=== PATIENT | male | born 1950 | race Caucasian/White ===

== ENCOUNTER → 2020-12-07 10:24 | Outpatient (BNVA) | payer MEDICARE, OTHER, SELFPAY | PROVIDERS: PCP Internal Medicine; Visit Provider Internal Medicine | DX: M53.3 Sacrococcygeal disorders, not elsewhere classified (principal); M96.1 Postlaminectomy syndrome, not elsewhere classified; M47.817 Spondylosis without myelopathy or radiculopathy, lumbosacral region | CPT/HCPCS: 99202 ==

== ENCOUNTER 2020-12-16 06:42 | Outpatient (REF) | payer MEDICARE, OTHER, SELFPAY ==
--- NOTE | ~2020-12-16 | FL_ITS ---
EXAMINATION: XR FLUOROSCOPY WITH IMAGES CLINICAL INFORMATION: Sacrococcygeal disorder. COMPARISON: None. TECHNIQUE: Fluoroscopy performed by Serene Garcia. Fluoroscopy time: 0.6 minutes DAP: 2.29 Gycm2 Images: 2 FINDINGS: There is needle positioned posterior to the S2 vertebra with contrast opacifying the soft tissues. There is needle position in the vicinity of right SI joint with contrast opacifying the soft tissues. FL/FL guidance in treatment room IMPRESSION: Fluoroscopy was provided to referring physician for pain management.
== END 2020-12-16 06:43 | disposition home or self-care (01) ==
LOC: HO.RADIR 06:42
PROVIDERS: Visit Provider Internal Medicine
DX: M53.3 Sacrococcygeal disorders, not elsewhere classified (principal)
CPT/HCPCS: 27096; J1040; Q9967

== ENCOUNTER → 2020-12-28 10:03 | Outpatient (BNVA) | payer MEDICARE, OTHER, SELFPAY | PROVIDERS: PCP Internal Medicine; Visit Provider Internal Medicine | DX: M53.3 Sacrococcygeal disorders, not elsewhere classified (principal); M96.1 Postlaminectomy syndrome, not elsewhere classified | CPT/HCPCS: Q3014 ==

== ENCOUNTER 2021-01-06 06:25 | Outpatient (REF) | payer MEDICARE, OTHER, SELFPAY | END 2021-01-06 06:26 | disposition home or self-care (01) | LOC: HO.RADIR 06:25 | PROVIDERS: Visit Provider Internal Medicine | DX: Z13.89 Encounter for screening for other disorder (principal) ==

== ENCOUNTER 2021-01-06 12:50 | Day surgery (SDC) | payer MEDICARE, OTHER, SELFPAY ==
--- NOTE | 2021-01-05 11:35 | HO.ANESPROP2 ---
Documented by User: Jo-Ann Schumacher NP 01/05/21 11:36 HPI - Anesthesia Eval Consult details Narrative: 70yo M for Right Sacroiliac joint innervation Radiofrequency Ablation PMFSH Active Problems Active Problems: All Active Problems (Updated 12/09/20 @ 10:05 by Cheo Dorantes MD) Lumbar and sacral spondylarthritis (Acute) Post laminectomy syndrome (Acute) Sacroiliac joint dysfunction of right side (Acute) Impotence of organic origin (Acute) Fatigue (Acute) Foot drop (Acute) Acquired deformity of ankle and foot (Acute) Osteopenia (Acute) Avascular necrosis of bone (Acute) Low back pain (Acute) Joint pain (Acute) Arthropathia (Acute) GERD (gastroesophageal reflux disease) (Acute) Allergic rhinitis (Acute) Essential hypertension (Acute) Plantar nerve lesion (Acute) Insomnia (Acute) Anemia (Acute) Hypo-osmolality and hyponatremia (Acute) Hyperlipidemia (Acute) Pure hypercholesterolemia (Acute) 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) Past Medical History Medical History Acquired deformity of ankle and foot Luke disease Adrenal cortical hypofunction Allergic rhinitis Anemia Arthropathia Avascular necrosis of bone Cellulitis Cellulitis of lower limb Essential hypertension Fatigue Foot drop GERD (gastroesophageal reflux disease) H/O bone density study Hyperlipidemia Hypo-osmolality and hyponatremia Impotence of organic origin Insomnia Joint pain Low back pain Lumbar and sacral spondylarthritis Osteopenia Plantar nerve lesion Post laminectomy syndrome Pure hypercholesterolemia Sacroiliac joint dysfunction of right side Surgical History Surgical History H/O colonoscopy History of appendectomy History of back surgery History of esophagogastroduodenoscopy (EGD) History of revision of total hip arthroplasty Hx of tonsillectomy Joint replaced S/P hip arthroscopy Social History Social History Advance Directives: Yes Advance Directives on File: Yes Advance Directives Date on File: 01/06/21 Meds Allergies Allergy/AdvReac Type Severity Reaction Status Date / Time No Known Allergies Allergy Verified 12/16/20 09:13 [No Known Allergies*] Home Medications Medication Instructions Recorded Confirmed Last Taken Type diazepam 10 mg tablet 20 mg PO BEDTIME PRN tab 12/07/20 12/16/20 Unknown History ezetimibe 10 mg tablet 10 mg PO DAILY 12/07/20 12/16/20 Unknown History hydrocortisone 10 mg tablet 10 mg PO BID tab 12/07/20 12/16/20 Unknown History oxycodone-acetaminophen 10 mg-325 1 tab PO Q6H PRN 12/07/20 12/16/20 Unknown History mg tablet pregabalin 200 mg capsule (Lyrica) 200 mg PO BID 12/07/20 12/16/20 Unknown History rosuvastatin 20 mg tablet 20 mg PO DAILY 12/07/20 12/16/20 Unknown History trazodone 50 mg tablet 100 mg PO BEDTIME 12/07/20 12/16/20 Unknown History Exam Exam Date and Time: January 05, 2021 113 Assessment and Plan Assessment Anesthesia Assessment: Chart Reviewed Documented by User: Hortencia Randolph MD 01/06/21 13:16 [facility] Past Medical History Medical History Acquired deformity of ankle and foot [place] disease Adrenal cortical hypofunction Allergic rhinitis Anemia Arthropathia Avascular necrosis of bone Cellulitis Cellulitis of lower limb Essential hypertension Fatigue Foot drop GERD (gastroesophageal reflux disease) H/O bone density study Hyperlipidemia Hypo-osmolality and hyponatremia Impotence of organic origin Insomnia Joint pain Low back pain Lumbar and sacral spondylarthritis Osteopenia Plantar nerve lesion Post laminectomy syndrome Pure hypercholesterolemia Sacroiliac joint dysfunction of right side Functional capacity: independent ambulation Family History Family history of problems with anesthesia: No Surgical History Surgical History H/O colonoscopy History of appendectomy History of back surgery History of esophagogastroduodenoscopy (EGD) History of revision of total hip arthroplasty Hx of tonsillectomy Joint replaced S/P hip arthroscopy History of Problems with Anesthesia: No Social History Social History Advance Directives: Yes Advance Directives on File: Yes Advance Directives Date on File: 01/06/21 Meds Allergies Allergy/AdvReac Type Severity Reaction Status Date / Time No Known Allergies Allergy Verified 12/16/20 09:13 [No Known Allergies*] Home Medications Medication Instructions Recorded Confirmed Last Taken Type diazepam 10 mg tablet 20 mg PO BEDTIME PRN tab 12/07/20 12/16/20 Unknown History ezetimibe 10 mg tablet 10 mg PO DAILY 12/07/20 12/16/20 Unknown History hydrocortisone 10 mg tablet 10 mg PO BID tab 12/07/20 12/16/20 Unknown History oxycodone-acetaminophen 10 mg-325 1 tab PO Q6H PRN 12/07/20 12/16/20 Unknown History mg tablet pregabalin 200 mg capsule (Lyrica) 200 mg PO BID 12/07/20 12/16/20 Unknown History rosuvastatin 20 mg tablet 20 mg PO DAILY 12/07/20 12/16/20 Unknown History trazodone 50 mg tablet 100 mg PO BEDTIME 12/07/20 12/16/20 Unknown History Exam Airway Mallampati Class: II TM Dist: >3cm Neck ROM: Full Heart: RRR Lungs: CTA Assessment and Plan Final Anesthetic Review Family History of Problems with Anesthesia: No History of Problems with Anesthesia: No
[2021-01-06] VITALS (8 sets, daily range): BP systolic 129–172; BP diastolic 44–89; PULSE 54–72; RESP 16–17; TEMP 36.8–37.3; O2SAT 97–100
--- NOTE | ~2021-01-06 | FL_ITS ---
EXAMINATION: XR FLUOROSCOPY WITH IMAGES CLINICAL INFORMATION: SI radiofrequency ablation COMPARISON: Radiographs lumbar spine 09/08/2015 TECHNIQUE: Fluoroscopy performed by Dr. Dorantes. Fluoroscopy time: 2.8 minutes DAP: 11.1 Gycm2 Images: 20 FINDINGS: There are needles/electrodes overlying the bilateral sacral wings at upper, mid, and lower levels. Disc spacers are present lower lumbar spine. The pedicle screws and rods lower lumbar spine noted on prior radiographs 2015 are no longer demonstrated. There are degenerative changes again seen with multilevel lumbar disc narrowing and vertebral spurring, and lower lumbar spondylolisthesis. FL/FL guidance in OR IMPRESSION: Fluoroscopy for pain management procedures.
--- NOTE | 2021-01-06 13:55 | PC.NURSE ---
Patient states he has filled out DNR/DNI paperwork in the past. Patient does not have paperwork with him. Patients HCP is his , Guadalupe Adams, .
[2021-01-06] MEDS: Lactated Ringers 1,000 ML 100 ML IVCONT (14:09)
--- NOTE | 2021-01-06 14:49 | MHC.SHP ---
Pre-Procedural Eval Section A Date of Service: 01/06/21 The patient is an INPATIENT: No Changes since office visit: Yes Patient answered all questions The History & Physical has been completed within 30 days and I have reviewed it.: Yes Section B Chief Complaint: Sacroiliitis Allergies: Allergies Allergy/AdvReac Type Severity Reaction Status Date / Time No Known Allergies Allergy Verified 01/06/21 13:36 [No Known Allergies*] Plan Diagnosis/Plan: Unchanged I have reviewed the history and physical and performed a pertinent physical examination on my patient. No changes have occurred unless specified.
--- NOTE | 2021-01-06 17:27 | PM.OP ---
Brief Operative Note Date of Service: 01/06/21 Pre-op diagnosis: Sacroiliac dysfunction Post-op diagnosis: same Procedure: Sacroiliac joint innervation radiofrequency ablation Implants: None Surgeon: Cheo Dorantes MD Anesthesia: MAC Was an Director Patient Accounting used for this Procedure?: No Estimated blood loss (mL): 3 Pathology: none sent Condition: stable Disposition: PACU
--- NOTE | 2021-01-06 17:28 | P.OP_ITS ---
Operative Note Operative Note Date of Service: 01/06/21 Narrative: Sacroiliac Joint Innervation Radiofrequency Ablation - Bilateral The procedure, its benefits, and its risks including possible skin necrosis and lack relief were explained and written informed consent was obtained from the patient. Immediately prior to starting the procedure, a time-out safety check was conducted. The patient's identification, procedure name, procedure site, and procedure laterality were confirmed with the patient. The procedure site was marked with a surgical marker. Patient was placed prone on the fluoroscopy table and sedated by the judo instructor. His back was prepped and draped in standard fashion using ChloraPrep and draped with sterile drape. The C-arm AP view with a slight cephalad tilt was used to identify the S1, S2 and S3 foramina. The skin and subcutaneous tissue was anesthetized using 2% plain lidocaine with 1.5-inch 25- gauge needle along the lateral border of the sacral foramina. RF cannulas were then positioned laterally along the foramina in a sequential palisade formation at shallow angles as well as at the L5 dorsal ramus site. Proper advancement and positioning was assured using fluoroscopic guidance, and correct positioning was confirmed in the AP and lateral projections. The stylet was removed and the radiofrequency probe was inserted through the cannula. The impedance was between 300 and 500 ohms at all sites. Motor stimulation at 2Hz was carried out with no evidence of radicular motor stimulation in the legs. Subsequently, denervation was performed for 90 seconds at 80 degrees Celsius without complication at each site. At the L5 level, 1 denervation was performed. At each sacral foraminal level, 3 denervations were performed in the superolateral, lateral and infrolateral positions. The same procedure was repeated on the contralateral site. The patient tolerated the procedure well. After the procedure, he was woken up and brought to PACU in stable condition.
[2021-01-06] MEDS: fentaNYL citrate/PF 100 MCG/2 ML VIAL 25 MCG IVPUSH (17:45)
[2021-01-06] MEDS: oxyCODONE HCl Immed Release 5 MG TABLET 10 MG PO (17:56)
[2021-01-06] MEDS: Acetaminophen 325 MG TABLET 650 MG PO (17:59)
== END 2021-01-06 18:35 | disposition home or self-care (01) ==
PROVIDERS: Visit Provider Internal Medicine
PROC: (CPT 64635; principal; 2021-01-06 14:10)
DX: M46.1 Sacroiliitis, not elsewhere classified (principal); M47.898 Other spondylosis, sacral and sacrococcygeal region; M53.3 Sacrococcygeal disorders, not elsewhere classified; M54.50 Low back pain, unspecified; M96.1 Postlaminectomy syndrome, not elsewhere classified; M85.80 Other specified disorders of bone density and structure, unspecified site; R53.83 Other fatigue
CPT/HCPCS: 64625; J2250; J2370; J3010

== ENCOUNTER 2021-01-12 06:27 | Outpatient (REF) | payer MEDICARE, OTHER, SELFPAY ==
[2021-01-12 06:37] LABS: MANUAL DIFF FLAG NO
[2021-01-12 07:15] LABS: Basophils Percent Auto 0.4 % (0-2); Eosinophils Absolute Auto 0.1 X10*3/uL (0.0-0.4); Hematocrit 36.2 % (42-52); Hemoglobin 12.4 g/dl (14.0-18.0); Imm Gran Abs Auto 0.03 X10*3/uL (0.00-0.03); Imm Gran Pct Auto 0.4 % (0.0-0.4); Lymphocytes Absolute Auto 1.8 X10*3/uL (1.2-4.9); Lymphocytes Percent Auto 22.2 % (20-40); Mean Corpuscular HGB Conc 34.3 g/dl (31.0-36.0); Mean Corpuscular Hemoglobin 33.9 pg (27.0-33.0); Mean Corpuscular Volume 98.9 fL (80-98); Mean Platelet Volume 9.5 fL (9.4-12.4); Monocytes Absolute Auto 0.8 X10*3/uL (0.1-1.2); Neutrophils Absolute Auto 5.2 X10*3/uL (2.0-8.3); Platelet Count 160 X10*3/uL (160-400); Red Blood Count 3.66 X10*6/uL (4.60-5.80); Red Cell Distribution Width 13.2 % (11.0-16.0); White Blood Count 7.9 X10*3/uL (4.8-10.8)
[2021-01-12 07:27] LABS: Estimated Average Glucose 103 mg/dL; Hemoglobin A1c % 5.2 %
[2021-01-12 07:43] LABS: Alanine Aminotransferase 38 U/L (0-40); Alkaline Phosphatase 57 U/L (39-117); Anion Gap 12 (12-20); Aspartate Amino Transferase 60 U/L (5-37); Bilirubin Total 0.3 mg/dL (0.0-1.0); Blood Urea Nitrogen 20 mg/dL (9-16); Calcium 9.1 mg/dL (8.4-10.2); Carbon Dioxide 30 mmol/L (22-29); Chloride 101 mmol/L (96-108); Cholesterol 137 mg/dL; Estimated Glomerular Filt Rate > 60; Glucose Random 96 mg/dL (60-115); HDL Cholesterol 78 mg/dL; LDL Cholesterol Calculated 44 mg/dl; Potassium 4.3 mmol/L (3.3-5.1); Sodium 139 mmol/L (135-145); Total Protein 6.3 g/dL (6.5-8.0); Triglycerides 77 mg/dL
[2021-01-12 07:54] LABS: Prostate Specific Antigen 0.75 ng/mL (<0.05-4.0)
[2021-01-12 08:11] LABS: Folate 15.3 ng/mL (> or = 4.0); Vitamin B12 1276 pg/mL (200-900)
== END 2021-01-12 06:28 | disposition home or self-care (01) ==
LOC: HO.LAB 06:27
PROVIDERS: Visit Provider Physician Assistant Medical
DX: Z12.5 Encounter for screening for malignant neoplasm of prostate (principal); E89.6 Postprocedural adrenocortical (-medullary) hypofunction; N40.0 Benign prostatic hyperplasia without lower urinary tract symptoms; R53.83 Other fatigue; I10 Essential (primary) hypertension; D53.9 Nutritional anemia, unspecified; R73.01 Impaired fasting glucose
CPT/HCPCS: 36415; 80053; 80061; 82607; 82746; 83036; 84153; 85025

== ENCOUNTER → 2021-01-22 09:30 | Outpatient (BNVA) | payer MEDICARE, OTHER, SELFPAY | PROVIDERS: Visit Provider Internal Medicine | DX: M79.18 Myalgia, other site (principal); M47.817 Spondylosis without myelopathy or radiculopathy, lumbosacral region; M96.1 Postlaminectomy syndrome, not elsewhere classified | CPT/HCPCS: 20553; 99212 ==

== ENCOUNTER 2021-01-27 05:43 | Outpatient (REF) | payer MEDICARE, OTHER, SELFPAY ==
--- NOTE | ~2021-01-27 | FL_ITS ---
EXAMINATION: XR FLUOROSCOPY WITH IMAGES CLINICAL INFORMATION: Spondylosis without myelopathy COMPARISON: 01/06/2021 TECHNIQUE: Fluoroscopy performed by Dr. Dorantes. Fluoroscopy time: 0.5 minutes DAP: 1.1 Gycm2 Images: 4 FINDINGS: A radiopaque needle projects posterior to the lower lumbar spine at the L4-L5 level. FL/FL guidance in treatment room IMPRESSION: Fluoroscopic guidance for intervention at L4-L5 level posteriorly. Please refer to procedural report for further information.
== END 2021-01-27 05:44 | disposition home or self-care (01) ==
LOC: HO.RADIR 05:43
PROVIDERS: Visit Provider Internal Medicine
DX: M47.817 Spondylosis without myelopathy or radiculopathy, lumbosacral region (principal); M96.1 Postlaminectomy syndrome, not elsewhere classified; M54.50 Low back pain, unspecified
CPT/HCPCS: 64493; 64494; Q9967

== ENCOUNTER → 2021-01-29 11:53 | Outpatient (BNVA) | payer MEDICARE, OTHER, SELFPAY | PROVIDERS: Visit Provider Internal Medicine | DX: M47.817 Spondylosis without myelopathy or radiculopathy, lumbosacral region (principal); M96.1 Postlaminectomy syndrome, not elsewhere classified | CPT/HCPCS: Q3014 ==

== ENCOUNTER 2021-02-10 06:42 | Outpatient (REF) | payer MEDICARE, OTHER, SELFPAY | END 2021-02-10 06:43 | disposition home or self-care (01) | LOC: HO.RADIR 06:42 | PROVIDERS: Visit Provider Internal Medicine | DX: Z13.89 Encounter for screening for other disorder (principal) ==

== ENCOUNTER 2021-02-10 12:14 | Day surgery (SDC) | payer MEDICARE, OTHER, SELFPAY ==
--- NOTE | 2021-02-09 13:11 | P.CONAN_ITS ---
Documented by User: Jo-Ann Schumacher NP 02/09/21 13:13 HPI - Anesthesia Eval Consult details Narrative: 70yo M for Left L3-L4-L5 Medial Branches Radiofrequency Ablation s/p sacroiliac RFA with MAC 12/2020 Daily steroid d/t addisons PMFSH Active Problems Active Problems: All Active Problems (Updated 12/09/20 @ 10:05 by Cheo Dorantes MD) Lumbar and sacral spondylarthritis (Acute) Post laminectomy syndrome (Acute) Sacroiliac joint dysfunction of right side (Acute) Impotence of organic origin (Acute) Fatigue (Acute) Foot drop (Acute) Acquired deformity of ankle and foot (Acute) Osteopenia (Acute) Avascular necrosis of bone (Acute) Low back pain (Acute) Joint pain (Acute) Arthropathia (Acute) GERD (gastroesophageal reflux disease) (Acute) Allergic rhinitis (Acute) Essential hypertension (Acute) Plantar nerve lesion (Acute) Insomnia (Acute) Anemia (Acute) Hypo-osmolality and hyponatremia (Acute) Hyperlipidemia (Acute) Pure hypercholesterolemia (Acute) 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) Past Medical History Medical History Acquired deformity of ankle and foot Amelia disease Adrenal cortical hypofunction Allergic rhinitis Anemia Arthropathia Avascular necrosis of bone Cellulitis Cellulitis of lower limb Essential hypertension Fatigue Foot drop GERD (gastroesophageal reflux disease) H/O bone density study Hyperlipidemia Hypo-osmolality and hyponatremia Impotence of organic origin Insomnia Joint pain Low back pain Lumbar and sacral spondylarthritis Osteopenia Plantar nerve lesion Post laminectomy syndrome Pure hypercholesterolemia Sacroiliac joint dysfunction of right side Family History Family history of problems with anesthesia: No Surgical History Surgical History H/O colonoscopy History of appendectomy History of back surgery History of esophagogastroduodenoscopy (EGD) History of revision of total hip arthroplasty Hx of tonsillectomy Joint replaced S/P hip arthroscopy History of Problems with Anesthesia: No Social History Social History Patient Tobacco Use Status: Never used Tobacco Use of substances other than those prescribed or required for medical reasons: No Have you been hit, kicked, punched, or otherwise hurt by someone within the past year? If so, by whom?: No Are you DNR?: No Advance Directives: Yes Advance Directives on File: Yes Advance Directives Date on File: 01/06/21 Recently lost weight without trying: No Meds Allergies Allergy/AdvReac Type Severity Reaction Status Date / Time No Known Allergies Allergy Verified 01/29/21 11:55 [No Known Allergies*] Home Medications Medication Instructions Recorded Confirmed Last Taken Type diazepam 10 mg tablet 20 mg PO BEDTIME PRN tab 12/07/20 01/27/21 Unknown History ezetimibe 10 mg tablet 10 mg PO DAILY 12/07/20 01/27/21 Unknown History hydrocortisone 10 mg tablet 10 mg PO BID tab 12/07/20 01/27/21 02/10/21 History oxycodone-acetaminophen 10 mg-325 1 tab PO Q6H PRN 12/07/20 01/27/21 Unknown History mg tablet pregabalin 200 mg capsule (Lyrica) 200 mg PO BID 12/07/20 01/27/21 Unknown History rosuvastatin 20 mg tablet 20 mg PO DAILY 12/07/20 01/27/21 Unknown History trazodone 50 mg tablet 100 mg PO BEDTIME 12/07/20 01/27/21 Unknown History Exam Exam Date and Time: February 09, 2021 1311 Pertinent Lab Results Pertinent Lab Results: Laboratory Tests 01/12/21 01/12/21 06:35 06:35 WBC 7.9 Hgb 12.4 L Hct 36.2 L Plt Count 160 Sodium 139 Potassium 4.3 Chloride 101 Carbon Dioxide 30 H BUN 20 H Creatinine 0.86 Assessment and Plan Assessment Anesthesia Assessment: Chart Reviewed Final Anesthetic Review Family History of Problems with Anesthesia: No History of Problems with Anesthesia: No Documented by User: Rossana Flower MD 02/10/21 13:11 [facility] Past Medical History Medical History Acquired deformity of ankle and foot Luke disease Adrenal cortical hypofunction Allergic rhinitis Anemia Arthropathia Avascular necrosis of bone Cellulitis Cellulitis of lower limb Essential hypertension Fatigue Foot drop GERD (gastroesophageal reflux disease) H/O bone density study Hyperlipidemia Hypo-osmolality and hyponatremia Impotence of organic origin Insomnia Joint pain Low back pain Lumbar and sacral spondylarthritis Osteopenia Plantar nerve lesion Post laminectomy syndrome Pure hypercholesterolemia Sacroiliac joint dysfunction of right side Surgical History Surgical History H/O colonoscopy History of appendectomy History of back surgery History of esophagogastroduodenoscopy (EGD) History of revision of total hip arthroplasty Hx of tonsillectomy Joint replaced S/P hip arthroscopy Social History Social History Patient Tobacco Use Status: Never used Tobacco Use of substances other than those prescribed or required for medical reasons: No Have you been hit, kicked, punched, or otherwise hurt by someone within the past year? If so, by whom?: No Are you DNR?: No Advance Directives: Yes Advance Directives on File: Yes Advance Directives Date on File: 01/06/21 Recently lost weight without trying: No Meds Allergies Allergy/AdvReac Type Severity Reaction Status Date / Time No Known Allergies Allergy Verified 01/29/21 11:55 [No Known Allergies*] Home Medications Medication Instructions Recorded Confirmed Last Taken Type diazepam 10 mg tablet 20 mg PO BEDTIME PRN tab 12/07/20 01/27/21 Unknown History ezetimibe 10 mg tablet 10 mg PO DAILY 12/07/20 01/27/21 Unknown History hydrocortisone 10 mg tablet 10 mg PO BID tab 12/07/20 01/27/21 02/10/21 History oxycodone-acetaminophen 10 mg-325 1 tab PO Q6H PRN 12/07/20 01/27/21 Unknown History mg tablet pregabalin 200 mg capsule (Lyrica) 200 mg PO BID 12/07/20 01/27/21 Unknown History rosuvastatin 20 mg tablet 20 mg PO DAILY 12/07/20 01/27/21 Unknown History trazodone 50 mg tablet 100 mg PO BEDTIME 12/07/20 01/27/21 Unknown History Exam Airway Mallampati Class: II (Multiple crowns ) TM Dist: >3cm Neck ROM: Full Heart: rrr Lungs: b/l breath sounds Assessment and Plan Assessment Anesthesia Assessment: Anesthesia Plan Discussed and Chart Reviewed Final Anesthetic Review NPO: Yes ASA Class: II Final Preanesthetic Review: Meds/Allgs Chart Reviewed and Anes Risks/Benef Reviewed Patient Risk: Intermediate Procedure Risk: Intermediate Anesthetic Plan Anesthetic Plan: MAC: Disposition: Standard PACU
--- NOTE | ~2021-02-10 | FL_ITS ---
EXAMINATION: XR FLUOROSCOPY WITH IMAGES CLINICAL INFORMATION: Lumbar medial branch block COMPARISON: Previous exam 01/27/2021 TECHNIQUE: Fluoroscopy performed by Dr. Dorantes Fluoroscopy time: 0.8 minutes DAP: 3.8 Gycm2 Images: 6 FINDINGS: Images demonstrate needle placement adjacent to the left lateral L3-L4 and L5 vertebral bodies. FL/FL guidance in OR IMPRESSION: Fluoroscopy guidance for pain management procedure
[2021-02-10 12:21] VITALS: BP 152/39; PULSE 57; RESP 16; TEMP 36.2; O2SAT 97
[2021-02-10] MEDS: Lactated Ringers 1,000 ML 50 ML IVCONT (13:50)
--- NOTE | 2021-02-10 14:20 | MHC.SHP ---
Pre-Procedural Eval Section A Date of Service: 02/10/21 The patient is an INPATIENT: No Changes since office visit: Yes Patient answered all questions The History & Physical has been completed within 30 days and I have reviewed it.: Yes Section B Chief Complaint: Lumbar and Sacral Spondylarthritis Relevant Family History (Specify if Yes): No Relevant Social History: None History of Previous Operations: Relevant previous surgery/procedure and date(s) (see clinic note) Allergies: Allergies Allergy/AdvReac Type Severity Reaction Status Date / Time No Known Allergies Allergy Verified 01/29/21 11:55 [No Known Allergies*] Plan Diagnosis/Plan: Unchanged I have reviewed the history and physical and performed a pertinent physical examination on my patient. No changes have occurred unless specified.
--- NOTE | 2021-02-10 14:21 | P.BOP_ITS ---
Brief Operative Note Date of Service: 02/10/21 Pre-op diagnosis: Lumbar spondylosis Post-op diagnosis: same Procedure: L3/L4/L5 Lumbar medial branch cooled radiofrequency ablation Surgeon: Cheo Dorantes MD Anesthesia: MAC Was an Eyeglass Lens Generator used for this Procedure?: No Estimated blood loss (mL): 5 Pathology: none sent Condition: stable Disposition: PACU
--- NOTE | 2021-02-10 14:22 | P.OP_ITS ---
Operative Note Operative Note Date of Service: 02/10/21 Narrative: Cooled Radiofrequency lesioning medial branch nerves, left L2, L3, L4 medial branches (2 levels, 3 nerves) After obtaining written consent, pre-procedure blood pressure and heart rate were stable and recorded in the nursing record. Standard monitors were applied. The patient was placed in the prone position. The lumbar area was prepped with chloraprep and draped in sterile fashion. The skin over the target for each medial branch nerve was anesthetized with 0.5% lidocaine. An 18 gauge radiofrequency cannula was advanced to each target site under fluoroscopic guidance. No paresthesias were elicited with needle placement and aspiration was negative for heme and CSF. Impedences were verified under 600 ohms. Motor testing (2 Hz) confirmed needle placement at each site within the appropriate voltage thresholds. Each site was injected with 0.5 ml 2% preservative-free lidocaine. Radiofrequency lesioning was performed for 245 seconds at 80 deg Celcius tissue temperature. Each site was then injected with 0.5ml 2% lidocaine. The needle was removed, skin cleansed and a sterile bandage was applied. The patient tolerated the procedure well and no complications were encountered. Following the procedure the patient's vital signs were stable. The patient was discharged home in good condition with post-procedural instructions. Time Out: Immediately prior to the procedure, the following was verbally conf irmed that there is a signed consent form and that the correct patient, planned procedure, site and side are consistent with documentation and that necessary equipment and/or blood products are available prior to the start of the case. Complications: none EBL: <5 cc
[2021-02-10 15:18] VITALS: BP 138/61; PULSE 56; RESP 16; TEMP 36.7; O2SAT 100
[2021-02-10 15:33] VITALS: BP 151/58; PULSE 51; RESP 17; TEMP 36.7; O2SAT 97
[2021-02-10] MEDS: oxyCODONE HCl Immed Release 5 MG TABLET 10 MG PO (15:33)
== END 2021-02-10 16:19 | disposition home or self-care (01) ==
PROVIDERS: Visit Provider Internal Medicine
PROC: (CPT 64635; principal; 2021-02-10 13:40)
DX: M47.817 Spondylosis without myelopathy or radiculopathy, lumbosacral region (principal); M54.50 Low back pain, unspecified; M96.1 Postlaminectomy syndrome, not elsewhere classified; M85.80 Other specified disorders of bone density and structure, unspecified site; I10 Essential (primary) hypertension; R53.83 Other fatigue; E27.1 Primary adrenocortical insufficiency; J30.9 Allergic rhinitis, unspecified; Z79.899 Other long term (current) drug therapy
CPT/HCPCS: 64635; 64636; J2250; J3010

== ENCOUNTER 2021-02-12 10:03 | Outpatient (REF) | payer MEDICARE, OTHER, SELFPAY ==
--- NOTE | ~2021-02-12 | XR_ITS ---
EXAMINATION: XR LUMBOSACRAL SPINE WITH OBLIQUES CLINICAL INFORMATION: Postlaminectomy syndrome. COMPARISON: 09/08/2015. TECHNIQUE: AP view, right and left lateral bending views, weightbearing lateral view and weightbearing flexion lateral view. FINDINGS: There is redemonstration of approximately 0.7 cm of anterolisthesis of L4 on L5 without significant change since 2016. Otherwise, anatomic alignment is maintained. On flexion views there is no evidence of instability. Similarly, on lateral bending views, there is no change in alignment to suggest instability. There are interdisc spacers at L2-L3, L3-L4 and L4-L5. Previously visualized posterior fusion hardware from L2 through L5 has been removed. There is advanced lumbar spondylosis leading to significant central canal narrowing and neural foraminal encroachment from L3 through L5. Partially visualized total left hip arthroplasty. Surgical clips are identified overlying the right sacroiliac joint on the frontal view. XR/XR lumbar spine 6V w bending IMPRESSION: No evidence of acute fractures. Unchanged appearance of an approximately 0.7 cm of anterolisthesis of L4 on L5. No instability on flexion or lateral bending views. Advanced lumbar spondylosis. Further evaluation with a CT or MR of the lumbar spine would be helpful to assess for nerve root impingement or central thecal narrowing if clinically indicated.
== END 2021-02-12 10:04 | disposition home or self-care (01) ==
LOC: HO.XRAY 10:03
PROVIDERS: PCP Internal Medicine; Visit Provider Internal Medicine
DX: M96.1 Postlaminectomy syndrome, not elsewhere classified (principal); M47.817 Spondylosis without myelopathy or radiculopathy, lumbosacral region
CPT/HCPCS: 72114; 99212

== ENCOUNTER 2021-11-23 06:29 | Outpatient (REF) | payer MEDICARE, OTHER, SELFPAY ==
[2021-11-23 06:48] LABS: MANUAL DIFF FLAG NO
[2021-11-23 07:13] LABS: Basophils Absolute Auto 0.1 X10*3/uL (0.0-0.2); Basophils Percent Auto 0.7 % (0-2); Eosinophils Absolute Auto 0.2 X10*3/uL (0.0-0.4); Eosinophils Percent Auto 1.6 % (0-4); Hematocrit 39.3 % (42.0-52.0); Hemoglobin 13.5 g/dl (14.0-18.0); Imm Gran Abs Auto 0.13 X10*3/uL (0.00-0.03); Imm Gran Pct Auto 1.3 % (0.0-0.4); Lymphocytes Absolute Auto 2.1 X10*3/uL (1.2-4.9); Lymphocytes Percent Auto 19.8 % (20-40); Mean Corpuscular HGB Conc 34.4 g/dl (31.0-36.0); Mean Corpuscular Hemoglobin 34.5 pg (27.0-33.0); Mean Corpuscular Volume 100.5 fL (80.0-98.0); Mean Platelet Volume 9.5 fL (9.4-12.4); Monocytes Absolute Auto 0.8 X10*3/uL (0.1-1.2); Monocytes Percent Auto 7.4 % (2-11); Neutrophils Absolute Auto 7.2 x10*3/uL (2.0-8.3); Neutrophils Percent Auto 69.2 % (45-73); Platelet Count 192 X10*3/uL (160-400); Red Blood Count 3.91 X10*6/uL (4.60-5.80); Red Cell Distribution Width 14.4 % (11.0-16.0); White Blood Count 10.4 X10*3/uL (4.8-10.8)
[2021-11-23 07:39] LABS: Alanine Aminotransferase 34 U/L (0-40); Albumin Level 4.1 g/dL (3.5-5.0); Alkaline Phosphatase 47 U/L (39-117); Anion Gap 15 (12-20); Aspartate Amino Transferase 44 U/L (5-37); Bilirubin Total 0.5 mg/dL (0.0-1.0); Blood Urea Nitrogen 24 mg/dL (9-16); C Reactive Protein 2.97 mg/dL (< or = 0.50); Carbon Dioxide 34 mmol/L (22-29); Chloride 98 mmol/L (96-108); Estimated Glomerular Filt Rate > 60; Glucose Random 96 mg/dL (60-115); Potassium 4.9 mmol/L (3.3-5.1); Sodium 142 mmol/L (135-145); Total Protein 6.6 g/dL (6.5-8.0)
[2021-11-23 07:56] LABS: Erythrocyte Sedimentation Rate 12 MM/HR (0-15)
[2021-11-25 16:57] LABS: Cyclic Citrullinated Peptide <16 UNITS
[2021-11-30 18:46] LABS: Anti Nuclear Antibody Screen POSITIVE (NEGATIVE); Anti Nuclear Antibody Titer 1:40 titer
== END 2021-11-23 06:30 | disposition home or self-care (01) ==
LOC: HO.LAB 06:29
PROVIDERS: PCP Internal Medicine; Visit Provider Internal Medicine
DX: M06.9 Rheumatoid arthritis, unspecified (principal)
CPT/HCPCS: 36415; 80053; 85025; 85652; 86038; 86039; 86140; 86200

== ENCOUNTER 2022-11-29 08:24 | Day surgery (SDC) | payer MEDICARE, OTHER, SELFPAY ==
[2022-11-29 09:34] VITALS: BP 105/45; PULSE 65; RESP 18; TEMP 36.2; O2SAT 99; BMI 20.3
--- NOTE | 2022-11-29 09:35 | HO.ANESPROP2 ---
Documented by User: Jo-Ann Schumacher NP 11/25/22 11:06 HPI - Anesthesia Eval Consult details Narrative: 72yo M for Upper Endoscopy and Colonoscopy [facility] Active Problems Active Problems: All Active Problems (Updated 11/25/22 @ 07:39 by Do Ernandez RN) Lumbar and sacral spondylarthritis (Acute) Post laminectomy syndrome (Acute) Sacroiliac joint dysfunction of right side (Acute) Impotence of organic origin (Acute) Fatigue (Acute) Foot drop (Acute) Acquired deformity of ankle and foot (Acute) Osteopenia (Acute) Avascular necrosis of bone (Acute) Low back pain (Acute) Joint pain (Acute) Arthropathia (Acute) GERD (gastroesophageal reflux disease) (Acute) Allergic rhinitis (Acute) Essential hypertension (Acute) Plantar nerve lesion (Acute) Insomnia (Acute) Anemia (Acute) Hypo-osmolality and hyponatremia (Acute) Hyperlipidemia (Acute) Pure hypercholesterolemia (Acute) 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) Past Medical History Medical History 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 Allergic rhinitis Anemia Arthropathia Avascular necrosis of bone Cellulitis of lower limb Essential hypertension Fatigue Foot drop GERD (gastroesophageal reflux disease) H/O bone density study Hyperlipidemia Hypo-osmolality and hyponatremia Impotence of organic origin Insomnia Joint pain Low back pain Lumbar and sacral spondylarthritis Osteoarthritis Osteopenia Peripheral neuropathy Plantar nerve lesion Post laminectomy syndrome Pure hypercholesterolemia Sacroiliac joint dysfunction of right side Family History Family history of problems with anesthesia: No Surgical History Surgical History H/O colonoscopy History of appendectomy History of back surgery History of esophagogastroduodenoscopy (EGD) History of revision of total hip arthroplasty History of surgery on lower extremity Hx of rotator cuff surgery Hx of tonsillectomy Joint replaced S/P hip arthroscopy History of Problems with Anesthesia: No Social History Social History Patient Tobacco Use Status: Never used Tobacco Advance Directives: No Advance Directives Information Provided: Yes Advance Directives Date on File: 01/06/21 Meds Allergies Allergy/AdvReac Type Severity Reaction Status Date / Time No Known Allergies Allergy Verified 02/12/21 10:09 [No Known Allergies*] Home Medications Medication Instructions Recorded Confirmed Last Taken Type diazepam 10 mg tablet 20 mg PO BEDTIME PRN Insomnia 12/07/20 02/12/21 Unknown History ezetimibe 10 mg tablet 10 mg PO DAILY 12/07/20 02/12/21 Unknown History hydrocortisone 10 mg tablet 10 mg PO BID 12/07/20 02/12/21 02/10/21 History pregabalin 200 mg capsule (Lyrica) 200 mg PO BID 12/07/20 02/12/21 Unknown History rosuvastatin 20 mg tablet 20 mg PO DAILY 12/07/20 02/12/21 Unknown History trazodone 50 mg tablet 100 mg PO BEDTIME 12/07/20 02/12/21 Unknown History fluorouracil 5 % topical cream 1 appl topical BID 11/25/22 11/25/22 Unknown History lidocaine 5 % topical patch 1 patch topical DAILY 11/25/22 11/25/22 Unknown History lisinopril 5 mg tablet 5 mg PO DAILY 11/25/22 11/25/22 Unknown History Exam Exam Date and Time: November 25, 2022 1101 Assessment and Plan Assessment Anesthesia Assessment: Chart Reviewed Final Anesthetic Review Family History of Problems with Anesthesia: No History of Problems with Anesthesia: No Documented by User: Do Mukherjee DO 11/29/22 09:37 [facility] Past Medical History Medical History 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 Allergic rhinitis Anemia Arthropathia Avascular necrosis of bone Cellulitis of lower limb Essential hypertension Fatigue Foot drop GERD (gastroesophageal reflux disease) H/O bone density study Hyperlipidemia Hypo-osmolality and hyponatremia Impotence of organic origin Insomnia Joint pain Low back pain Lumbar and sacral spondylarthritis Osteoarthritis Osteopenia Peripheral neuropathy Plantar nerve lesion Post laminectomy syndrome Pure hypercholesterolemia Sacroiliac joint dysfunction of right side Family History Family history of problems with anesthesia: No Surgical History Surgical History H/O colonoscopy History of appendectomy History of back surgery History of esophagogastroduodenoscopy (EGD) History of revision of total hip arthroplasty History of surgery on lower extremity Hx of rotator cuff surgery Hx of tonsillectomy Joint replaced S/P hip arthroscopy History of Problems with Anesthesia: No Social History Social History Patient Tobacco Use Status: Never used Tobacco Advance Directives: No Advance Directives Information Provided: Yes Advance Directives Date on File: 01/06/21 Meds Allergies Allergy/AdvReac Type Severity Reaction Status Date / Time No Known Allergies Allergy Verified 02/12/21 10:09 [No Known Allergies*] Home Medications Medication Instructions Recorded Confirmed Last Taken Type diazepam 10 mg tablet 20 mg PO BEDTIME PRN Insomnia 12/07/20 02/12/21 Unknown History ezetimibe 10 mg tablet 10 mg PO DAILY 12/07/20 02/12/21 Unknown History hydrocortisone 10 mg tablet 10 mg PO BID 12/07/20 02/12/21 02/10/21 History pregabalin 200 mg capsule (Lyrica) 200 mg PO BID 12/07/20 02/12/21 Unknown History rosuvastatin 20 mg tablet 20 mg PO DAILY 12/07/20 02/12/21 Unknown History trazodone 50 mg tablet 100 mg PO BEDTIME 12/07/20 02/12/21 Unknown History fluorouracil 5 % topical cream 1 appl topical BID 11/25/22 11/25/22 Unknown History lidocaine 5 % topical patch 1 patch topical DAILY 11/25/22 11/25/22 Unknown History lisinopril 5 mg tablet 5 mg PO DAILY 11/25/22 11/25/22 Unknown History Exam Exam Date and Time: November 29, 2022 0935 Airway Mallampati Class: I TM Dist: >3cm Neck ROM: Full Loose/Missing/Broken Teeth: No Heart: S1S2 Lungs: CTAB Assessment and Plan Assessment Anesthesia Assessment: Anesthesia Plan Discussed and Chart Reviewed Final Anesthetic Review Family History of Problems with Anesthesia: No History of Problems with Anesthesia: No NPO: Yes ASA Class: III Final Preanesthetic Review: No Changes in Pt Med Stat, Meds/Allgs Chart Reviewed, Consent Obtained/Reviewed and Anes Risks/Benef Reviewed Patient Risk: Intermediate Procedure Risk: Low Anesthetic Plan Anesthetic Plan: MAC: and Agree w/ Assess. and Plan Disposition: Standard PACU
[2022-11-29] MEDS: Lactated Ringers 1,000 ML 100 ML IVCONT (09:58)
--- NOTE | 2022-11-29 10:13 | MHC.SHP ---
Pre-Procedural Eval Section A Date of Service: 11/29/22 Section B Chief Complaint: GERD,Screening Details of Present Illness: see H&P no changes Relevant Family History (Specify if Yes): No Relevant Social History: None Present Medications: see Short Stay Collaborative assessment Medical History: No relevant PMH Allergies: Allergies Allergy/AdvReac Type Severity Reaction Status Date / Time No Known Allergies Allergy Verified 02/12/21 10:09 [No Known Allergies*] Review of Systems Sugical H&P ROS: Negative: Constitution, Cardiovascular, Respiratory, Neurological, Psychiatric, Hem-Onc, Allergic/Immunologic, Gastrointestinal, Genitourinary, Musculoskeletal, Integumentary, Endocrine and Eyes/Ears/Nose/Throat Exam Surgical H&P Exam: Normal: HEENT, Normal: Heart, Normal: Lungs, Normal: Extremities, Normal: Abdomen, Normal: Skin and Normal: Neurological Plan Diagnosis/Plan: Unchanged I have reviewed the history and physical and performed a pertinent physical examination on my patient. No changes have occurred unless specified. Time Spent With Patient Time: Total time managing care of this patient today ____ minutes.
--- NOTE | 2022-11-29 11:03 | P.BOP_ITS ---
Brief Operative Note Date of Service: 11/29/22 Pre-op diagnosis: gerd screening Post-op diagnosis: same Procedure: egd colonoscopy Surgeon: Danilo Nieto Anesthesia: MAC Was an Irrigationist Designer used for this Procedure?: No Estimated blood loss (mL): 2 Pathology: other Condition: stable Disposition: PACU
[2022-11-29 11:05] VITALS: BP 109/42; PULSE 68; RESP 16; TEMP 36.6; O2SAT 99
[2022-11-29 11:20] VITALS: BP 118/43; PULSE 66; RESP 16; TEMP 36.7; O2SAT 100
--- NOTE | 2022-11-29 11:54 | OP_ITS ---
DATE OF SERVICE: 11/29/2022 SURGEON: Danilo Nieto MD INDICATIONS: 1. Gastroesophageal reflux disease. 2. Colorectal cancer screening. PREOPERATIVE DIAGNOSIS: POSTOPERATIVE DIAGNOSIS: PROCEDURE PERFORMED: Upper endoscopy with biopsy, colonoscopy to the cecum. ESTIMATED BLOOD LOSS: COMPLICATIONS: ANESTHESIA: Monitored anesthesia care. ASSISTANTS: SPECIMENS: DESCRIPTION OF PROCEDURE: A history and physical was performed. The risks and benefits of the procedure were explained to the patient. Informed consent was obtained. The patient was placed in the left lateral decubitus position. The Olympus video gastroscope was introduced into the esophagus, stomach, and duodenum. Examination was performed. The scope was removed. He tolerated the procedure well and was repositioned for colonoscopy. A digital rectal exam was performed and was found to be normal. The Olympus pediatric video colonoscope was introduced into the rectum and advanced to the cecum without difficulty. The cecum was identified by transillumination, palpation, and identification of the ileocecal valve. Examination was performed. The scope was removed. He tolerated the procedure well and was returned to the recovery area in stable condition. FINDINGS: Upper endoscopy: 1. Esophagus: The esophagus was normal. There was no esophagitis. 2. Stomach: The stomach showed no evidence of masses, ulcers, or polyps. 3. Duodenum: The bulb and second portion were normal. Biopsies were obtained from the EG junction and antrum. Colonoscopy: The terminal was not examined. The visualized colonic mucosa was normal. The quality of the prep was fair with some retained liquid and small amounts of liquid stool. This was washed and suctioned. No polyps were identified. The sigmoid was slightly tortuous, retroflexed examination showed small internal hemorrhoids. IMPRESSION: 1. Normal upper endoscopy. 2. Normal colonoscopy. RECOMMENDATION: 1. Follow up the biopsy results. 2. Repeat colonoscopy is recommended in 10 years for average risk individuals. This is optional based on the patient's age. MD AURY Miles/JIMMYL / [phone]
== END 2022-11-29 11:40 | disposition home or self-care (01) ==
PROVIDERS: PCP Internal Medicine; Visit Provider Internal Medicine Gastroenterology
PROC: (CPT 43239; principal; 2022-11-29 09:50)
DX: Z12.11 Encounter for screening for malignant neoplasm of colon (principal); K21.9 Gastro-esophageal reflux disease without esophagitis; K64.8 Other hemorrhoids; I10 Essential (primary) hypertension; E78.5 Hyperlipidemia, unspecified; E27.1 Primary adrenocortical insufficiency; Z79.899 Other long term (current) drug therapy
CPT/HCPCS: 43239; G0121; 88305; 88342; J2371